=== PATIENT | female | born 2000 | race Caucasian/White ===

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

== ENCOUNTER 2024-05-05 15:02 | Inpatient (IN) | payer OTHER ==
[~2024-05-05] VITALS: Ht 162.6 cm; Wt 53.2 kg
[2024-05-05] MEDS ORDERED: NORE1PAT TOP (15:13)
[2024-05-05] MEDS ORDERED: LORA-622 PO (15:13)
[2024-05-05] MEDS ORDERED: FLUO40CA PO (15:13)
[2024-05-05] MEDS ORDERED: LEVO50TA5 PO (15:13)
[2024-05-05 16:00] LABS: HEMATOCRIT 38.6 % (36.0-47.0); HEMOGLOBIN 13.2 g/dl (12.0-15.5); MEAN CORPUSCULAR HEMOGLOBIN 29.9 pg (27.0-33.0); MEAN CORPUSCULAR HGB CONC 34.2 g/dl (32.0-36.5); MEAN CORPUSCULAR VOLUME 87.5 fl (80.0-96.0); PLATELET COUNT, AUTOMATED 257 10^3/uL (150-450); RED BLOOD COUNT 4.41 10^6/uL (4.00-5.40); WHITE BLOOD COUNT 4.8 10^3/uL (4.0-10.0)
[2024-05-05 16:19] LABS: BARBITURATES URINE NEGATIVE (NEGATIVE); COCAINE METABOLITE URINE NEGATIVE (NEGATIVE); METHADONE URINE NEGATIVE (NEGATIVE)
[2024-05-05 16:20] LABS: AMPHETAMINES LEVEL URINE NEGATIVE (NEGATIVE); BENZODIAZEPINES URINE NEGATIVE (NEGATIVE); CANNABINOIDS URINE NEGATIVE (NEGATIVE); OPIATES URINE NEGATIVE (NEGATIVE); PHENCYCLIDINE URINE NEGATIVE (NEGATIVE)
[2024-05-05 16:22] LABS: ETHYL ALCOHOL (ETHANOL) < 0.003 % (0.000-0.010)
[2024-05-05 16:24] LABS: ALBUMIN 3.7 G/DL (3.2-5.2); ALKALINE PHOSPHATASE 58 U/L (46-116); ALT/SGPT 15 U/L (7.0-40); AST/SGOT 12 U/L (<34); BILIRUBIN,DIRECT 0.3 MG/DL (<0.4); BILIRUBIN,TOTAL 0.9 MG/DL (0.3-1.2); BLOOD UREA NITROGEN 7 MG/DL (9-23); CALCIUM LEVEL 9.5 MG/DL (8.5-10.1); CARBON DIOXIDE LEVEL 29 MMOL/L (20-31); CHLORIDE LEVEL 104 MMOL/L (98-107); CREATININE FOR GFR 0.59 MG/DL (0.55-1.30); GLOMERULAR FILTRATION RATE > 60.0 (>60); GLUCOSE, FASTING 83 MG/DL (60-100); POTASSIUM SERUM 4.1 MMOL/L (3.5-5.1); SALICYLATE LEVEL < 3.0 MG/DL (<30); SODIUM LEVEL 138 MMOL/L (136-145); TOTAL PROTEIN 7.4 G/DL (5.7-8.2)
[2024-05-05 16:31] LABS: HCG, SERUM QUALITATIVE NEGATIVE (NEGATIVE)
[2024-05-05] MEDS ORDERED: HOME MED LIST COMPLETE! XX SCH (17:15)
[2024-05-05] MEDS ORDERED: IBUPROFEN 400MG TAB PO PRN (18:15)
[2024-05-05] MEDS ORDERED: MOM 30ML SUSPENSION UDC PO PRN (18:15)
[2024-05-05] MEDS ORDERED: MAALOX 30 ML SUSP *UDC PO PRN (18:15)
[2024-05-05] MEDS ORDERED: traZODone 50 MG TAB PO PRN (18:15)
[2024-05-05] MEDS ORDERED: ACETAMINOPHEN TAB 650MG DOSE (2X325MG) PO PRN (18:15)
[2024-05-05 22:00] VITALS: BP 106/65; TEMP 97.6; O2SAT 96
[2024-05-06 06:16] VITALS: BP 100/60; TEMP 97.6; O2SAT 97
[2024-05-06] MEDS: FLUoxetine 20MG CAP PO SCH (10:50)
[2024-05-06 14:43] VITALS: BP 106/61; TEMP 97.8; O2SAT 97
[2024-05-06] MEDS: diphenhydrAMINE 25MG CAP PO PRN (21:55)
[2024-05-07 06:26] VITALS: BP 107/71; TEMP 97.1; O2SAT 99
== END 2024-05-07 10:03 | disposition home or self-care (01) | DRG 885 ==
LOC: M ED 15:02 → M ED INP 18:11 → M PSY 21:13
PROVIDERS: ADMIT Psychiatry & Neurology Psychiatry; ATTEND Psychiatry & Neurology Psychiatry
DX: F33.9 Major depressive disorder, recurrent, unspecified (principal); E03.9 Hypothyroidism, unspecified; Z88.0 Allergy status to penicillin; Z79.890 Hormone replacement therapy; Z79.899 Other long term (current) drug therapy

== ENCOUNTER 2024-11-09 07:54 | Emergency (ER) | payer OTHER ==
[~2024-11-09] VITALS: Ht 162.6 cm; Wt 54.6 kg
[~2024-11-09 07:54] MED LIST changes: +FLUO40CA PO; +LEVO50TA5 PO; +LORA-622 PO; +NORE1PAT TOP; -PROHANCE 279.3MG/ML 5ML VIAL ONE
[2024-11-09 08:06] VITALS: TEMP 97.7
[2024-11-09] MEDS ORDERED: DOXY-440 PO (12:28)
[2024-11-09] MEDS: IBUPROFEN 600MG TAB PO ONE (12:28)
[2024-11-09] MEDS ORDERED: METR-265 PO (12:28)
[2024-11-09 13:02] VITALS: BP 109/67; O2SAT 99
== END 2024-11-09 13:18 | disposition home or self-care (01) ==
LOC: M ED 07:54
DX: S61.452A Open bite of left hand, initial encounter (principal); Y92.9 Unspecified place or not applicable; Y93.9 Activity, unspecified; Y99.9 Unspecified external cause status; W55.01XA Bitten by cat, initial encounter; E03.9 Hypothyroidism, unspecified; F32.A Depression, unspecified; Z88.0 Allergy status to penicillin; Z79.2 Long term (current) use of antibiotics; Z79.899 Other long term (current) drug therapy

== ENCOUNTER → 2025-07-21 | Outpatient (REF) | payer OTHER ==
[~2025-07-21] MED LIST changes: +DOXY-440 PO; +LORA-1164 PO; -LORA-622 PO; +METR-265 PO
== END ==
LOC: M SFHCWAGY 11:46
PROVIDERS: ATTEND Nurse Practitioner Family
DX: Z01.419 Encounter for gynecological examination (general) (routine) without abnormal findings (principal)